=== PATIENT | male | born 1980 | race Caucasian/White ===

== ENCOUNTER 2017-11-03 15:53 | Outpatient (CLI) | payer OTHER ==
--- NOTE | 2017-11-04 13:07 | XRAY Report ---
TWO VIEW CHEST: 11/03/2017 CLINICAL INDICATION: Dyspnea, chest pain. FINDINGS: Frontal and lateral views of the chest demonstrate a normal cardiac silhouette. The lungs are clear. No effusion or pneumothorax is present. IMPRESSION: NORMAL CHEST. TD: 11/04/2017 13:05
== END 2017-11-03 15:54 | disposition home or self-care (01) ==
LOC: DI.S 15:53
PROVIDERS: ATTEND Naturopath
DX: R07.9 Chest pain, unspecified (principal); R06.00 Dyspnea, unspecified
CPT/HCPCS: 71046

== ENCOUNTER 2019-11-09 12:09 | Outpatient (CLI) | payer OTHER ==
--- NOTE | 2019-11-09 13:09 | XRAY Report ---
Reason: PAIN. FOCUS ON 1ST METATARSAL REGION Procedure Date: 11/09/2019 Accession Number: [id number] / [id number] Procedure: XR - Foot 3 View LT CPT Code: Final Report FULL RESULT: EXAM: LEFT FOOT RADIOGRAPHY EXAM DATE: 11/09/2019 12:30 PM. CLINICAL HISTORY: Pain. Focus on 1st metatarsal region. COMPARISON: None. TECHNIQUE: 3 views. FINDINGS: Bones: No fractures or bone lesions. No periosteal reaction. Joints: . No subluxations. Soft Tissues: No subcutaneous radiopaque foreign bodies. IMPRESSION: No fractures or significant degenerative changes identified, including at the first metatarsal. RADIA
== END 2019-11-09 12:10 | disposition home or self-care (01) ==
LOC: DI 12:09
PROVIDERS: ATTEND Naturopath
DX: M79.672 Pain in left foot (principal)

== ENCOUNTER 2020-05-11 19:28 | Emergency (ER) | payer OTHER ==
--- NOTE | 2020-05-11 19:44 | ED Physician Documentation ---
PD HPI UPPER EXT INJURY - Stated complaint Stated Complaint: L WRIST INJURY - History obtained from History obtained from: Patient (He was walking down a steep ramp and fell backwards, he hurt his low back and his left wrist which is more severe. Main pain is near the pisiform on the palmar side of the left wrist. No other injuries. Declines pain medication on initial evaluation.) Review of Systems Constitutional: reports: Reviewed and negative Eyes: reports: Reviewed and negative Cardiac: reports: Reviewed and negative Respiratory: reports: Reviewed and negative PD PAST MEDICAL HISTORY - Present Medications Home Medications: Ambulatory Orders Medication Instructions Recorded Confirmed No Known Home Medications 05/11/20 05/11/20 - Allergies Allergies/Adverse Reactions: Allergies Allergy/AdvReac Type Severity Reaction Status Date / Time No Known Drug Allergies Allergy Verified 05/11/20 19:49 PD ED PE NORMAL - Vitals Vital signs reviewed: Yes - General General: Alert and oriented X 3, No acute distress - Back Back: Other (Very mild tenderness just to the left of L5, possibly a transverse process fracture. no midline ttp) - Derm Derm: Normal color, Warm and dry - Extremities Extremities: Other (ttp L wrist anteriorly over medial wrist over pisiform) - Neuro Neuro: Alert and oriented X 3, Normal speech Results - Vitals Vitals: Vital Signs - 24 hr 05/11/20 19:30 Temperature 36.3 C L Heart Rate 66 Respiratory 16 Rate Blood Pressure 131/84 H O2 Saturation 99 Oxygen O2 Source Room air - Rads (name of study) 4 view x-ray of the left wrist Radiology: EMP read contemporaneously (Normal) PD MEDICAL DECISION MAKING - ED course ED course: He already has a appropriate Velcro splint that appears to fit well. He declined an x-ray of the lumbar spine. Departure - Departure Disposition: 01 Home, Self Care Clinical Impression: Left wrist sprain Qualifiers: Encounter type: initial encounter Qualified Code(s): S63.502A - Unspecified sprain of left wrist, initial encounter Condition: Good Record reviewed to determine appropriate education?: Yes Instructions: ED Sprain Wrist Comments: use the splint you have as needed for the next couple of weeks, return for new or worsening symptoms. Follow-up with your doctor if not improving. Ibuprofen and ice for the pain.
--- NOTE | 2020-05-11 20:26 | XRAY Report ---
PROCEDURE: Wrist 4 View LT INDICATIONS: wrist inj- FOCUS on pisiform area TECHNIQUE: 4 views of the wrist were acquired. COMPARISON: None FINDINGS: Bones: No fractures or dislocations. No suspicious bony lesions. Scaphoid view: Negative Soft tissues: No suspicious soft tissue calcifications. IMPRESSION: No acute fracture. No osseous lesion. If symptoms and/or clinical suspicion for pathology continue, f urther assessment with repeat plain films, or advanced imaging (e.g., CT, MRI, or bone scan) is recom mended for further assessment. Reviewed by: Josefina Bailey MD on 05/11/2020 8:25 PM PDT Approved by: Josefina Bailey MD on 05/11/2020 8:25 PM PDT Station ID: [id number]
[2020-05-11 20:37] VITALS: BP 119/76
== END 2020-05-11 20:39 | disposition home or self-care (01) ==
LOC: ED 19:28
DX: S63.502A Unspecified sprain of left wrist, initial encounter (principal); W10.2XXA Fall (on)(from) incline, initial encounter; Y93.01 Activity, walking, marching and hiking
CPT/HCPCS: 99282; 99283

== ENCOUNTER 2020-11-06 11:22 | Outpatient (CLI) | payer OTHER ==
[2020-11-06 14:33] LABS: HGB - HEMOGLOBIN 15.8 g/dL (14.0-18.0); MEAN CORPUSCULAR HEMOGLOBIN 30.9 pg (27.0-31.0); MEAN CORPUSCULAR VOLUME 93.6 fL (80.0-94.0); MEAN PLATELET VOLUME 11.7 fL (7.4-11.4); RED BLOOD COUNT 5.12 10^6/uL (4.70-6.10); RED CELL DISTRIBUTION WIDTH 12.2 % (12.0-15.0); WHITE BLOOD COUNT 4.1 x10^3/uL (4.8-10.8)
[2020-11-06 15:35] LABS: RHEUMATOID FACTOR NEGATIVE (Negative)
[2020-11-08 10:21] LABS: ANA SCREEN NEGATIVE (NEGATIVE)
[2020-11-08 11:20] LABS: DNA (DS) ANTIBODY 1 IU/mL
[2020-11-08 20:06] LABS: CYCLIC CITRULL PEPTIDE CCP IGG <16 UNITS
== END 2020-11-06 11:23 | disposition home or self-care (01) ==
LOC: LAB.S 11:22
PROVIDERS: ATTEND Physician Assistant
DX: R59.1 Generalized enlarged lymph nodes (principal); K92.1 Melena; R10.9 Unspecified abdominal pain; M54.2 Cervicalgia; G89.29 Other chronic pain; M54.5 Low back pain; K21.9 Gastro-esophageal reflux disease without esophagitis
CPT/HCPCS: 36415; 85027; 85651; 86038; 86140; 86200; 86225; 86430

== ENCOUNTER 2020-12-16 08:59 | Day surgery (SDC) | payer OTHER ==
[2020-12-16] MEDS ORDERED: LACTATED RINGERS 1,000 ML IV ONE ×2 (09:30→11:45)
[2020-12-16] MEDS ORDERED: fentaNYL 250 MCG/5 ML VIAL ONE (11:12)
[2020-12-16] MEDS ORDERED: MIDAZOLAM 2 MG/2 ML VIAL ONE ×2 (11:12→11:31)
[2020-12-16 12:16] VITALS: BP 94/73
== END 2020-12-16 09:00 | disposition home or self-care (01) ==
LOC: SDS 08:59
PROVIDERS: ATTEND Surgery
PROC: 0DBH8ZX Excision of Cecum, Via Natural or Artificial Opening Endoscopic, Diagnostic (ICD-10-PCS; 2020-12-16)
PROC: 0DBE8ZX Excision of Large Intestine, Via Natural or Artificial Opening Endoscopic, Diagnostic (ICD-10-PCS; 2020-12-16)
PROC: 0DBC8ZX Excision of Ileocecal Valve, Via Natural or Artificial Opening Endoscopic, Diagnostic (ICD-10-PCS; 2020-12-16)
PROC: 0DBN8ZZ Excision of Sigmoid Colon, Via Natural or Artificial Opening Endoscopic (ICD-10-PCS; principal; 2020-12-16 10:00)
DX: K62.5 Hemorrhage of anus and rectum (principal); K63.5 Polyp of colon; K64.8 Other hemorrhoids; K62.89 Other specified diseases of anus and rectum; K52.9 Noninfective gastroenteritis and colitis, unspecified
CPT/HCPCS: 45380; 45385; J3010; J7120

== ENCOUNTER 2021-08-19 13:54 | Outpatient (CLI) | payer OTHER ==
--- NOTE | 2021-08-19 19:42 | XRAY Report ---
PROCEDURE: Foot 3 View LT INDICATIONS: Acute focal pain at the third TMT joint of left foot TECHNIQUE: 3 views of the foot were acquired. COMPARISON: November 09, 2019. FINDINGS: BONES: No acute, displaced fracture or dislocation. SOFT TISSUES: No focal abnormality. IMPRESSION: 1.No acute osseous abnormality. If the patient's pain persists, consider MR imaging for further evaluation Reviewed by: Juan Hernandez MD on 08/19/2021 7:40 PM PST Approved by: Juan Hernandez MD on 08/19/2021 7:40 PM PST Station ID: [id number]
== END 2021-08-19 13:55 | disposition home or self-care (01) ==
LOC: DI.S 13:54
PROVIDERS: ATTEND Naturopath
DX: M79.672 Pain in left foot (principal)

== ENCOUNTER 2022-08-14 08:00 | Outpatient (CLI) | payer OTHER ==
--- NOTE | 2022-08-14 15:55 | XRAY Report ---
PROCEDURE: Ribs w/PA Chest LT INDICATIONS: CONTUSION OF LEFT FRONT WALL THORAX TECHNIQUE: 4 views of the left ribs were acquired, along with a single view chest. COMPARISON: Correlation is made with prior chest radiograph, 11/03/2017 FINDINGS: Surgical changes and devices: None. Bones and chest wall: A marker is placed upon the area of pain. At this site, there is a minimally d isplaced fracture seen on one image involving the anteromedial sixth rib anteriorly. No fractures or dislocations are seen elsewhere. No suspicious bony lesions. The overlying soft tissues appear unre markable. Lungs and pleura: No pleural effusions or pneumothorax. Lungs appear clear. Mediastinum: Mediastinal contours appear normal. Heart size is normal. IMPRESSION: Minimally displaced left anterolateral sixth rib fracture seen on one image only. No additional rib fractures are seen. No associated pneumothorax. Reviewed by: Manuel Irby MD on 08/14/2022 2:54 PM [place] Approved by: Manuel Irby MD on 08/14/2022 2:54 PM [facility] Station ID: [id number]
== END 2022-08-14 23:59 | disposition home or self-care (01) ==
LOC: DI.S 08:00
PROVIDERS: ATTEND Emergency Medicine
DX: S22.32XA Fracture of one rib, left side, initial encounter for closed fracture (principal)

== ENCOUNTER 2023-07-11 08:00 | Outpatient (CLI) | payer BC, OTHER ==
--- NOTE | 2023-07-11 17:42 | XRAY Report ---
PROCEDURE: Elbow 3 View LT INDICATIONS: NONDISPLACED FRACTURE OF HEAD OF LEFT RADIUS TECHNIQUE: 3 views of the elbow were acquired. COMPARISON: None. FINDINGS: Bones: Minimally displaced fracture of the radial head. Soft tissues: Large joint effusion. No suspicious soft tissue calcifications or masses. IMPRESSION: Minimally displaced fracture of the radial head with a large joint effusion. Reviewed by: Martin Marroquin on 07/11/2023 5:41 PM PDT Approved by: Martin Marroquin on 07/11/2023 5:41 PM PDT Station ID: [id number]
--- NOTE | 2023-07-11 17:43 | XRAY Report ---
PROCEDURE: Elbow 3 View RT INDICATIONS: NONDISPLACED FRACTURE OF HEAD OF RIGHT RADIUS TECHNIQUE: 3 views of the elbow were acquired. COMPARISON: None. FINDINGS: Bones: Nondisplaced fracture of the radial head. Soft tissues: Large joint effusion. No suspicious soft tissue calcifications or masses. IMPRESSION: Nondisplaced fracture of the radial head with a large joint effusion. Reviewed by: Martin Marroquin on 07/11/2023 5:42 PM PDT Approved by: Martin Marroquin on 07/11/2023 5:42 PM PDT Station ID: [id number]
--- NOTE | 2023-07-11 18:20 | XRAY Report ---
PROCEDURE: Wrist 3 View RT INDICATIONS: SPRAIN OF RIGHT WRIST TECHNIQUE: 3 views of the wrist were acquired. COMPARISON: None. FINDINGS: Bones: No fractures or dislocations. No suspicious bony lesions. Joint spaces are maintained. Soft tissues: No suspicious soft tissue calcifications or masses. IMPRESSION: No acute osseous abnormality. If there is point tenderness of the scaphoid, consider repeat radiograp h in 7-10 days. Reviewed by: Ceasar Pascual MD on 07/11/2023 6:18 PM PDT Approved by: Ceasar Pascual MD on 07/11/2023 6:18 PM PDT Station ID: [id number]
== END 2023-07-11 23:59 | disposition home or self-care (01) ==
LOC: DI.S 08:00
PROVIDERS: ATTEND Emergency Medicine
DX: S63.521A Sprain of radiocarpal joint of right wrist, initial encounter (principal); S52.124A Nondisplaced fracture of head of right radius, initial encounter for closed fracture; S52.122A Displaced fracture of head of left radius, initial encounter for closed fracture

== ENCOUNTER 2023-07-18 08:00 | Outpatient (CLI) | payer BC ==
--- NOTE | 2023-07-18 13:51 | XRAY Report ---
PROCEDURE: Wrist 3 View RT INDICATIONS: RIGHT WRIST PAIN TECHNIQUE: 3 views of the wrist were acquired. COMPARISON: X-ray right wrist 07/11/2023. FINDINGS: Bones: No fractures or dislocations. No suspicious bony lesions. Soft tissues: No suspicious soft tissue calcifications or masses. IMPRESSION: No acute bony abnormality. Reviewed by: Buzz Munguia MD on 07/18/2023 1:49 PM PDT Approved by: Buzz Munguia MD on 07/18/2023 1:49 PM PDT Station ID: [id number]
--- NOTE | 2023-07-18 16:11 | XRAY Report ---
PROCEDURE: Elbow 3 View LT INDICATIONS: LEFT ELBOW PAIN TECHNIQUE: 3 views of the elbow were acquired. COMPARISON: Elbow x-ray 07/11/2023 FINDINGS: Bones: Stable appearance of minimally displaced proximal radial head fracture. Soft tissues: Minimal effusion. No suspicious soft tissue calcifications or masses. IMPRESSION: Stable appearance of minimally displaced proximal radial head fracture. Reviewed by: Sobia Hernandez MD on 07/18/2023 4:10 PM PDT Approved by: Sobia Hernandez MD on 07/18/2023 4:10 PM PDT Station ID: [id number]
--- NOTE | 2023-07-18 16:12 | XRAY Report ---
PROCEDURE: Elbow 3 View RT INDICATIONS: RIGHT ELBOW PAIN TECHNIQUE: 3 views of the elbow were acquired. COMPARISON: Elbow x-ray 07/11/2023 FINDINGS: Bones: Stable appearance of mildly displaced proximal radial head fracture. No visualized intra-mihaela cular extension Soft tissues: Mild effusion. No suspicious soft tissue calcifications or masses. IMPRESSION: Stable alignment of proximal radial head fracture. Reviewed by: Sobia Hernandez MD on 07/18/2023 4:11 PM PDT Approved by: Sobia Hernandez MD on 07/18/2023 4:11 PM PDT Station ID: [id number]
== END 2023-07-18 23:59 | disposition home or self-care (01) ==
LOC: DI.WOS 08:00
PROVIDERS: ATTEND Orthopaedic Surgery
DX: S52.122D Displaced fracture of head of left radius, subsequent encounter for closed fracture with routine healing (principal); S52.121D Displaced fracture of head of right radius, subsequent encounter for closed fracture with routine healing; S63.521A Sprain of radiocarpal joint of right wrist, initial encounter

== ENCOUNTER 2023-08-22 10:45 | Outpatient (CLI) | payer BC ==
--- NOTE | 2023-08-22 22:20 | XRAY Report ---
PROCEDURE: Elbow 3 View BILAT INDICATIONS: BILAT ELBOW FRACTURES TECHNIQUE: 3 views of the elbow were acquired. COMPARISON: X-ray right elbow, 07/18/2023 and 07/11/2023. X-ray left elbow, 07/18/2023 and 3. FINDINGS: Right elbow: There is a radial head fracture with no significant displacement. No suspicious bony l esions. Trace elbow effusion, decreased. No suspicious soft tissue calcifications or masses. Left elbow: The nondisplaced radial head fracture is no longer conspicuous. No suspicious bony lesi ons. There is trace elbow effusion, decreased since the last exam. No suspicious soft tissue calcifi cations or masses. IMPRESSION: 1. Healing radial head fractures bilaterally. 2. Decreased elbow effusions. Reviewed by: Dontrell Perez MD on 08/22/2023 10:19 PM PST Approved by: Dontrell Perez MD on 08/22/2023 10:19 PM PST Station ID: [id number]
--- NOTE | 2023-08-23 08:11 | XRAY Report ---
PROCEDURE: Shoulder 3 View RT INDICATIONS: RIGHT SHOULDER PAIN TECHNIQUE: 3 views of the shoulder were acquired. COMPARISON: None. FINDINGS: Bones: No fractures or dislocations. No suspicious bony lesions. Mild acromioclavicular and glenohu meral joint degeneration. Visualized ribs appear intact. Soft tissues: No suspicious soft tissue calcifications. The visualized lungs are within normal limi ts. IMPRESSION: Mild degenerative joint disease. If there is clinical suspicion for rotator cuff tendon tear or cecilia l pathology, consider MRI. Reviewed by: Dontrell Perez MD on 08/23/2023 8:10 AM [facility] Approved by: Dontrell Perez MD on 08/23/2023 8:10 AM [facility] Station ID: [id number]
== END 2023-08-22 23:59 | disposition home or self-care (01) ==
LOC: DI.WOS 10:45
PROVIDERS: ATTEND Orthopaedic Surgery
DX: S52.124D Nondisplaced fracture of head of right radius, subsequent encounter for closed fracture with routine healing (principal); S52.125D Nondisplaced fracture of head of left radius, subsequent encounter for closed fracture with routine healing; M19.011 Primary osteoarthritis, right shoulder

== ENCOUNTER 2024-05-29 12:40 | Outpatient (CLI) | payer BC ==
--- NOTE | 2024-05-29 17:24 | XRAY Report ---
PROCEDURE: Cervical Spine 2-3V INDICATIONS: NECK PAIN TECHNIQUE: 3 view(s) of the cervical spine were acquired. COMPARISON: None. FINDINGS: Bones: There is straightening of normal cervical lordosis. No acute fracture or dislocation. The late ral masses of C1 appear intact on the odontoid view. No suspicious bony lesions. Soft tissues: No prevertebral soft tissue swelling. IMPRESSION: No cervical spine fracture or dislocation. No significant degenerative disc disease. Reviewed by: Joe Calle MD on 05/29/2024 5:23 PM PDT Approved by: Joe Calle MD on 05/29/2024 5:23 PM PDT Station ID: [id number]
== END 2024-05-29 12:41 | disposition home or self-care (01) ==
LOC: DI 12:40
PROVIDERS: ATTEND Registered Nurse
DX: M54.2 Cervicalgia (principal); L04.8 Acute lymphadenitis of other sites